=== PATIENT | female | born 2000 | race Caucasian/White ===

== ENCOUNTER 2021-12-06 20:00 | Inpatient (IN) ==
[2021-12-06] MEDS ORDERED: Famotidine 20 MG/2 ML VIAL IVP PRN (22:53)
[2021-12-06] MEDS ORDERED: Metoclopramide 10 MG/2 ML VIAL IVP PRN (22:53)
[2021-12-06] MEDS ORDERED: Lidocaine 1% 20 ML MDV INFILT PRN (22:53)
[2021-12-06] MEDS ORDERED: Azithromycin 500 MG in 0.9 % Sodium Chloride 250 ML IVPB PRN (22:53)
[2021-12-06] MEDS ORDERED: Ondansetron 4 MG/2 ML VIAL IVP PRN (22:53)
[2021-12-06] MEDS ORDERED: Naloxone 0.4 MG/ML INJ IVP PRN (22:53)
[2021-12-06] MEDS ORDERED: Ringers Solution, Lactated 1,000 ML IVC SCH (23:00)
[2021-12-06] MEDS ORDERED: EPHEDrine 50 MG/ML VIAL IVP PRN (23:01)
[2021-12-06] MEDS ORDERED: Epidural Premix (fent/bupiv) 110 ML EP SCH (23:15)
[2021-12-06] MEDS ORDERED: Penicillin G Potassium 5,000,000 UNIT in 0.9 % Sodium Chloride Mini Bag 100 ML IVPB ONE (23:24)
[2021-12-06 23:27] LABS: Basophils % 0.1 %; Eosinophils # 0.1 K/mcL (0.0-0.6); Eosinophils % 0.5 %; Hematocrit 36.6 % (35.3-44.9); Hemoglobin 12.7 g/dL (11.5-15.4); Immature Granulocytes % 0.5 % (0-4); Lymphocytes # 1.3 K/mcL (0.6-4.6); Lymphocytes % 13.9 %; Mean Corpuscular HGB Conc 34.7 g/dL (31.6-35.5); Mean Corpuscular Hemoglobin 32.2 pg (28.0-33.3); Mean Corpuscular Volume 92.7 fL (83.0-100.0); Mean Platelet Volume 10.7 fL (9.4-12.4); Monocytes # 0.6 K/mcL (0.0-1.3); Monocytes % 6.1 %; Neutrophils # 7.6 K/mcL (1.6-8.9); Platelet Count 176 K/mcL (140-400); Red Blood Count 3.95 M/mcL (3.82-4.97); Red Cell Distribution Width 12.4 % (11.5-14.5); Segmented Neutrophils % 78.9 %; White Blood Count 9.7 K/mcL (4.3-11.1)
[2021-12-06] MEDS: miSOPROStoL 25 MCG TABLET PO PRN (23:49)
[2021-12-07 00:27] LABS: Amphetamine Screen,Urine Negative ng/mL (Cutoff=1000); Barbiturate Screen,Urine Negative ng/mL (Cutoff=200); Benzodiazepines Screen,Urine Negative ng/mL (Cutoff=200); Cannabinoid Screen,Urine Negative ng/mL (Cutoff = 50); Cocaine Screen,Urine Negative ng/mL (Cutoff= 300); Opiate Screen,Urine Negative ng/mL (Cutoff=300); Phencyclidine Screen,Urine Negative ng/mL (Cutoff=25)
[2021-12-07] MEDS: miSOPROStoL 25 MCG TABLET PO PRN (04:12)
[2021-12-07] MEDS: Penicillin G Potassium 2,500,000 UNIT/105 ML MLS IVPB SCH ×4 (04:13→19:20)
[2021-12-07] MEDS ORDERED: Oxytocin 30 UNIT/503 ML BAG IVC SCH (07:45)
[2021-12-07] MEDS: *HR* Nalbuphine 10 MG/ML AMPUL IV PRN ×2 (09:37→15:54)
[2021-12-08] MEDS ORDERED: Measles/Mumps/Rubella Vacc 0.5 ML VIAL SQ PRN (00:05)
[2021-12-08] MEDS ORDERED: Benzocaine/Menthol 56 GM AEROSOL SPRAY TP PRN (00:05)
[2021-12-08] MEDS ORDERED: Oxytocin 30 UNIT/503 ML BAG IVC SCH (00:05)
[2021-12-08] MEDS ORDERED: Lanolin 7 G OINT...G. TP PRN (00:05)
[2021-12-08] MEDS ORDERED: Ondansetron ODT 4 MG TAB.RAPDIS SL PRN (00:05)
[2021-12-08] MEDS: Acetaminophen 325 MG TABLET PO SCH ×4 (01:07→21:36)
[2021-12-08] MEDS: Ibuprofen 600 MG TABLET PO SCH ×4 (01:07→21:36)
[2021-12-08 05:32] LABS: Basophils % 0.2 %; Eosinophils % 0.3 %; Hematocrit 32.5 % (35.3-44.9); Hemoglobin 11.2 g/dL (11.5-15.4); Immature Granulocytes % 0.5 % (0-4); Lymphocytes % 8.9 %; Mean Corpuscular HGB Conc 34.5 g/dL (31.6-35.5); Mean Corpuscular Hemoglobin 31.9 pg (28.0-33.3); Mean Corpuscular Volume 92.6 fL (83.0-100.0); Mean Platelet Volume 11.1 fL (9.4-12.4); Monocytes # 0.6 K/mcL (0.0-1.3); Monocytes % 4.8 %; Neutrophils # 9.8 K/mcL (1.6-8.9); Platelet Count 133 K/mcL (140-400); Red Blood Count 3.51 M/mcL (3.82-4.97); Red Cell Distribution Width 12.4 % (11.5-14.5); Segmented Neutrophils % 85.3 %; White Blood Count 11.5 K/mcL (4.3-11.1)
[2021-12-08] MEDS: Prenatal Vit/FA 1 EACH TABLET PO SCH (08:42)
[2021-12-08] MEDS ORDERED: NON-FORMULARY MEDICATION 1 EACH EACH (Prenatal Caplet 1 TAB) PO SCH (09:00)
[2021-12-08] MEDS ORDERED: *HR* Nalbuphine 10 MG/ML AMPUL IM STA (16:33)
[2021-12-09 06:55] VITALS: BP 125/72; PULSE 85; TEMP 98.3; O2SAT 97
[2021-12-09] MEDS: Ibuprofen 600 MG TABLET PO SCH (07:33)
[2021-12-09] MEDS: Prenatal Vit/FA 1 EACH TABLET PO SCH (07:33)
[2021-12-09] MEDS: Acetaminophen 325 MG TABLET PO SCH (07:34)
== END 2021-12-09 11:27 | disposition home or self-care (01) | DRG 560 ==
LOC: 1NENULAB 21:56 → 1NENUOBS 12-08 00:01
PROVIDERS: ADMIT Obstetrics & Gynecology; ATTEND Obstetrics & Gynecology